=== PATIENT | male | born 1990 | race Two or more races ===

== ENCOUNTER 2016-10-11 18:52 | Emergency (ER) | payer MEDICAID ==
[~2016-10-11] VITALS: Ht 172.7 cm; Wt 81.6 kg
[2016-10-11] MEDS ORDERED: IBUPROFEN 600 MG TAB PO ONE (19:00)
[2016-10-11] MEDS ORDERED: HYDROmorphone HCL 2 MG/ML VL IV ONE ×2 (19:45→22:00)
[2016-10-11] MEDS ORDERED: ONDANSETRON HCL 4 MG/2 ML VIAL IV ONE (19:45)
[2016-10-11] MEDS ORDERED: cefTRIAXone 1GM/50ML D5W 50 ML IV ONE (22:00)
[2016-10-11] MEDS: TETANUS IMMUNE GLOBULIN 250 UNIT/ML SYRG IM ONE ×2 (22:06→22:12)
[2016-10-11] MEDS ORDERED: TETANUS-DIPTH-ACEL PERTUSSIS 0.5ML SYRG IM ONE (22:15)
[2016-10-11 22:21] VITALS: BP 130/77
== END 2016-10-11 22:45 | disposition short-term general hospital (02) ==
LOC: ER 18:54
DX: S42.402B Unspecified fracture of lower end of left humerus, initial encounter for open fracture (principal); S51.012A Laceration without foreign body of left elbow, initial encounter; F17.210 Nicotine dependence, cigarettes, uncomplicated; W01.0XXA Fall on same level from slipping, tripping and stumbling without subsequent striking against object, initial encounter; Y93.89 Activity, other specified; Y92.89 Other specified places as the place of occurrence of the external cause; Y99.8 Other external cause status
CPT/HCPCS: 29105; 73060; 73070; 90471; 90715; 96365; 96375; 96376; 99285; J0696; J1170; J2405